=== PATIENT | male | born 1970 | race Caucasian/White ===

== ENCOUNTER 2017-02-06 20:07 | Emergency (ER) | payer MEDICAID ==
[~2017-02-06] VITALS: Ht 167.6 cm; Wt 67.6 kg
[2017-02-06 20:07] VITALS: BP 151/77
--- NOTE | 2017-02-06 20:10 | NUR ---
PT BIB [facility] FOR HEROIN OVERDOSE, PER RESCUE. PT RECEIVED 2MG IM NARCAN CASE PACKER AND SEALER FOR UNRESPONSIVENESS; PT IS NOW AWAKE AND ALERT, YELLING AT STAFF AND THREATENING TO SPIT ON STAFF. NOTED WITH A COUGH AND TO BE DRY HEAVING. NO VOMITING NOTED. RESP EVEN UNLABORED. SKIN WARM NONDIAPHORETIC. IN ER BED 12. PLACED ON RESTRAINTS FOR SAFETY.
[2017-02-06] MEDS ORDERED: ONDANSETRON 4 MG TAB.RAPDIS ONE (20:14)
--- NOTE | 2017-02-06 20:14 | NUR ---
PT VOMITED MULTIPLE TIMES IN RAPID SUCCESSION; MD NOTIFIED. NO HEMATEMESIS NOTED.
[2017-02-06] MEDS ORDERED: ONDANSETRON 4 MG TAB.RAPDIS SL ONE (20:30)
--- NOTE | 2017-02-06 21:28 | NUR ---
PT AWAKE AND ALERT, STATED REPEATEDLY "I WANT TO LEAVE" AND WAS ESCORTED OUT BY SECURITY. AMBULATORY WITH STEADY GAIT. AWARE. Addendum: 02/06/17 at 2130 by HFOX NO SI/HI. PT REFUSED TO WAIT FOR DISCHARGE BY .
== END 2017-02-06 21:29 | disposition left against medical advice (07) ==
LOC: ER 20:09
DX: F11.10 Opioid abuse, uncomplicated (principal); I10 Essential (primary) hypertension; F32.9 Major depressive disorder, single episode, unspecified
CPT/HCPCS: 99283; A4606; Q0162; Z7610

== ENCOUNTER 2017-02-18 10:17 | Emergency (ER) | payer OTHER, MEDICAID ==
[~2017-02-18] VITALS: Ht 175.3 cm; Wt 80.7 kg
[2017-02-18 10:22] VITALS: BP 142/85
== END 2017-02-18 10:44 ==
LOC: ER 10:21
DX: S00.81XA Abrasion of other part of head, initial encounter (principal); I10 Essential (primary) hypertension; F32.9 Major depressive disorder, single episode, unspecified; F17.200 Nicotine dependence, unspecified, uncomplicated; W45.8XXA Other foreign body or object entering through skin, initial encounter; Y93.K3 Activity, grooming and shearing an animal; Y92.89 Other specified places as the place of occurrence of the external cause; Y99.8 Other external cause status
CPT/HCPCS: A4606; Z7610

== ENCOUNTER 2019-03-11 16:30 | Inpatient (IN) | payer MEDICAID, OTHER ==
[~2019-03-11] VITALS: Ht 175.3 cm; Wt 90.7 kg
--- NOTE | 2019-03-11 16:51 | NUR ---
PT BBISELF FOR LLE CELLULITIS, PT AAOX4, PT AMBULATORY, VSS, NAD NOTED, PT TO BED 13, PENDING MD MARIE
[2019-03-11] MEDS ORDERED: CLIN300C11 PO (17:22)
[2019-03-11] MEDS ORDERED: IBUP-1957 PO (17:22)
[2019-03-11] MEDS ORDERED: AMLO10TA7 PO (17:26)
[2019-03-11] MEDS ORDERED: HYDROMORPHONE 1 MG/1 ML DISP.SYRIN IM ONE (18:30)
[2019-03-11 18:42] LABS: CALCIUM, SERUM 7.6 mg/dL (8.5-10.1)
[2019-03-11 18:50] LABS: ALBUMIN 1.7 g/dL (3.4-5.0); BILIRUBIN,DIRECT 0.2 mg/dL (0.0-0.2); BILIRUBIN,TOTAL 0.5 mg/dL (0.2-1.0)
--- NOTE | 2019-03-11 18:50 | NUR ---
UNABLE TO START PIV. CALLED HOUSE SUP FOR MIDLINE NX
[2019-03-11 18:51] LABS: TOTAL PROTEIN, SERUM 6.2 g/dL (6.4-8.2)
--- NOTE | 2019-03-11 19:20 | NUR ---
PICCLINE/MIDLINE NURSE AT BEDSIDE.
[2019-03-11] MEDS ORDERED: HYDROMORPHONE 1 MG/1 ML DISP.SYRIN ONE (19:38)
--- NOTE | 2019-03-11 19:39 | NUR ---
REPORT GIVEN TO KATHI CHRISTIAN FOR DEBO
--- NOTE | 2019-03-11 19:45 | NUR ---
PER DR LECHUGA, GEORGIE TO GIVE DILAUDID 1MG IM TO IVP INSTEAD.
[2019-03-11 19:49] LABS: BASOPHILS % (AUTO) 0.4 % (0.0-2.0); EOSINOPHILS % (AUTO) 0.3 % (0.0-6.0); HEMATOCRIT 33 % (39-51); HEMOGLOBIN 10.4 g/dL (13.5-17.5); LYMPHOCYTES # (AUTO) 0.8 /CMM (0.8-4.8); LYMPHOCYTES % (AUTO) 7.2 % (20.0-44.0); MEAN CORPUSCULAR HGB CONC 31 g/dl (31.0-36.0); MEAN CORPUSCULAR VOLUME 73 fL (80-96); MONOCYTES # (AUTO) 1.2 /CMM (0.1-1.30); MONOCYTES % (AUTO) 10.6 % (2.0-12.0); NEUTROPHILS % (AUTO) 81.5 % (43.0-81.0); PLATELET COUNT (AUTO) 261 /CMM (150-450); RED BLOOD CELL COUNT(AUTO) 4.56 MIL/uL (4.5-6.0); WHITE BLOOD COUNT (AUTO) 11.1 K/uL (4.3-11.0)
[2019-03-11] MEDS ORDERED: VANCOMYCIN 1 GM in IV D5W 250 ML IV ONE (20:00)
[2019-03-11] MEDS ORDERED: PIPERACILLIN /TAZOBACTAM 3.375 G in IV D5W 50 ML IV ONE (20:00)
--- NOTE | 2019-03-11 20:22 | NUR ---
[facility] CALLED, AIRCRAFT SERVICER DOCTOR PAGED.
[2019-03-11] MEDS ORDERED: VANCOMYCIN 1 GM VIAL ONE (20:43)
[2019-03-11] MEDS ORDERED: PIPERACILLIN /TAZOBACTAM 3.375 G VIAL IV ONE (20:43)
--- NOTE | 2019-03-11 21:05 | NUR ---
REPORT GIVEN TO RATNA CHRISTIAN FOR DEBO.
[2019-03-11] MEDS ORDERED: ACETAMINOPHEN 325 MG TABLET PO PRN (21:30)
[2019-03-11] MEDS ORDERED: ONDANSETRON HCL/PF 4 MG/2 ML VIAL IVP PRN (21:30)
[2019-03-11] MEDS ORDERED: ZOLPIDEM TARTRATE 5 MG TABLET PO PRN (21:30)
[2019-03-11] MEDS ORDERED: BUMETANIDE INJ 6 MG in IV NS 0.9% 36 ML IV ONE (21:30)
[2019-03-11] MEDS ORDERED: Z GUARD REMEDY 2 OZ OINT TP PRN (21:30)
--- NOTE | 2019-03-11 21:30 | NUR ---
EXERCISER HORSETERMINAL SUPERVISOR NOTE: PT ADMITTED FROM ER VIA [facility] WITH ADMITTING DIAGNOSIS OF CELLULITIS. PT IS ALERT AND ORIENTED X4. ABLE TO MAKE NEEDS KNOWN. NO APPARENT DISTRESS NOTED. DENIES PAIN AND DISCOMFORT AT THIS TIME. ON ROOM AIR, SATURATING WELL. BREATHING EVEN AND UNLABORED WITH NORMAL RESPIRATIONS. ON TELE MONITOR SINUS RHYHTM HR 96BPM. PT HAS A LEFT UPPER ARM MIDLINE, FLUSHING WELL. PT IS AMBULATORY. PERTINENT ASSESSMENTS DONE. LEFT LOWER EXT CELLULITIS NOTED AND A DRY WOUND ON RIGHT INDEX FINGER WAS ALSO NOTED, PICTURES TAKEN AND PLACED ON CHART. CALL LIGHT PLACED WITHIN REACH. KEPT CLEAN, DRY AND COMFORTABLE. SAFETY AND FALL PRECAUTIONS OBSERVED AND MAINTAINED. WILL CONTINUE TO MONITOR PT.
[2019-03-11] MEDS ORDERED: BUMETANIDE INJ 0.25 MG/ML VIAL ONE ×2 (21:53→21:55)
[2019-03-11 21:55] VITALS: BP 162/102
[2019-03-11] MEDS: ENOXAPARIN SODIUM 40 MG/0.4 ML DISP.SYRIN SQ SCH ×2 (22:00→22:25)
--- NOTE | 2019-03-11 22:00 | NUR ---
MEDICAL CODING AUDITOR NOTE: DR. HERNANDEZ NOTIFIED REGARDING PATIENT'S BP 162/102 AND HE ORDERED TO START BUMEX IV AND DIOVAN 160MG PO BID FIRST DOSE TO START NOW. ORDER CARRIED OUT AND DONE. WILL CONTINUE TO MONITOR PT.
[2019-03-11 22:03] VITALS: BP 162/100
[2019-03-11] MEDS: VALSARTAN 80 MG TABLET PO SCH (22:24)
--- NOTE | 2019-03-11 23:00 | NUR ---
HEMP FIBER TAKER OFF NOTE: LOVENOX 40MG GIVEN AT 2225.
[2019-03-12] VITALS (7 sets, daily range): BP systolic 124–169; BP diastolic 80–100
[2019-03-12] MEDS ORDERED: PIPERACILLIN /TAZOBACTAM 3.375 G in IV D5W 50 ML IV ONE (02:00)
[2019-03-12] MEDS ORDERED: PIPERACILLIN /TAZOBACTAM 3.375 G VIAL IV ONE (02:21)
--- NOTE | 2019-03-12 06:29 | NUR ---
CORPORATE COMPLIANCE OFFICER NOTE: NO CHANGES NOTED THROUGHOUT THE SHIFT. NO APPARENT DISTRESS NOTED. DENIES PAIN AND DISCOMFORT AT THIS TIME. NO SOB NOTED. SINUS TACHY HR 104BPM ON TELE MONITOR. PT REFUSED BLOOD DRAW AT THIS TIME, VERBALIZED "I DON'T WANT TO BE BOTHERED AT THIS TIME". CHARGE NURSE MADE AWARE. LEFT UPPER ARM MIDLINE INTACT AND PATENT, FLUSHING WELL. CALL LIGHT PLACED WITHIN REACH. KEPT CLEAN, DRY AND COMFORTABLE. SAFETY AND FALL PRECAUTIONS OBSERVED AND MAINTAINED. WILL ENDORSE TO DAY SHIFT RN FOR CONTINUITY OF CARE.
[2019-03-12 07:45] LABS: BASOPHILS % (AUTO) 0.2 % (0.0-2.0); EOSINOPHILS % (AUTO) 0.3 % (0.0-6.0); HEMATOCRIT 32 % (39-51); HEMOGLOBIN 10.3 g/dL (13.5-17.5); LYMPHOCYTES # (AUTO) 1.2 /CMM (0.8-4.8); LYMPHOCYTES % (AUTO) 10.3 % (20.0-44.0); MEAN CORPUSCULAR HGB CONC 32 g/dl (31.0-36.0); MEAN CORPUSCULAR VOLUME 74 fL (80-96); MONOCYTES # (AUTO) 1.2 /CMM (0.1-1.30); MONOCYTES % (AUTO) 10.6 % (2.0-12.0); NEUTROPHILS % (AUTO) 78.6 % (43.0-81.0); PLATELET COUNT (AUTO) 321 /CMM (150-450); RED BLOOD CELL COUNT(AUTO) 4.37 MIL/uL (4.5-6.0); WHITE BLOOD COUNT (AUTO) 11.5 K/uL (4.3-11.0)
[2019-03-12 07:55] LABS: ALBUMIN 1.7 g/dL (3.4-5.0); BILIRUBIN,TOTAL 0.6 mg/dL (0.2-1.0); CALCIUM, SERUM 7.9 mg/dL (8.5-10.1); CREATININE 1.1 mg/dL (0.6-1.3); MAGNESIUM 1.6 mg/dL (1.8-2.4); PHOSPHORUS 3.8 mg/dL (2.5-4.9); POTASSIUM 3.8 mmol/L (3.5-5.1)
[2019-03-12] MEDS ORDERED: FEE PK DOSING 1 MIN EA MC ONE (07:57)
--- NOTE | 2019-03-12 08:00 | NUR ---
rn note Received pt from arc furnace operator, around 0735 he was in the bathroom, smoking smell noted and pt admitted smoking in the bathroom. pt reminded and encouraged not to smoke anywhere in the unit and safety hazard explained to him, he promised not to do it again. pt refused to give his matches and cigarettes to the nurse to safe. Pt refused to have nicotine patch, he is a heavy smoker, 1 pack /day. Pt removed his toy painter stating that is uncomfortable. Later he reported that he took Norvasc 10mg, Cleocin 300 mg, and a Ibuprofen 800 mg. from his bag. Pt instructed not to take any home meds while in the hospital risking overdose. Pt verbalized understanding. pt refused to give his medicines to store at the pharmacy.
[2019-03-12 08:06] LABS: THYROID STIMULATING HORMONE 6.696 uIU/mL (0.358-3.74)
[2019-03-12] MEDS: AMLODIPINE BESYLATE 10 MG TABLET PO SCH (08:14)
[2019-03-12] MEDS: VALSARTAN 80 MG TABLET PO SCH ×2 (08:23→16:45)
[2019-03-12] MEDS: HYDROCODONE/APAP 10/325MG 1 EA TABLET PO PRN ×2 (08:24→14:52)
--- NOTE | 2019-03-12 08:46 | NUR ---
WOUND CARE CONSULT: PT PRESENTS AMBULATORY AND CONTINENT WITH RT INDEX FINGER DRY WOUND, RT BUTTOCK NECROTIC WOUND AND LEFT LOWER LEG REDNESS, EDEMA AND SOME DRAINAGE, PRESENT ON ADMISSION. RECOMMEND SURGICAL AND DPM CONSULTS. DR LITO CRAVEN AND DR CHILDRESS NOTIFIED OF CONSULT REQUESTS. RECOMMENDATIONS MADE FOR WOUND CARE AND SKIN PROTECTION. DISCUSSED WITH NURSING STAFF. DEFER TO ROASTER HELPER FOR LOWER LEG. WILL SEE PRN. ABREU IN AGREEMENT WITH PLAN OF CARE. Addendum: 03/12/19 at 0848 by SARI MONCADA WNDNU Amended: Links added.
[2019-03-12] MEDS ORDERED: HYDROGEL DRESSING 90 GM TUBE TP PRN (09:00)
--- NOTE | 2019-03-12 09:00 | NUR ---
RN NOTE PT WANTS TO SMOKE, DIRECTOR SPECIALTY LIZBETH PEREA NOTIFIED, PT REFUSED NICOTINE PATCH. OKAY TO SMOKE UNDER SUPERVISION. PT SIGNED A WAIVER TO SMOKE.
[2019-03-12] MEDS: VANCOMYCIN 1 GM in IV D5W 250 ML IV SCH ×2 (09:30→19:02)
[2019-03-12] MEDS: HYDROGEL DRESSING 90 GM TUBE TP SCH (11:18)
[2019-03-12] MEDS: PIPERACILLIN /TAZOBACTAM 3.375 G in IV D5W 50 ML IV SCH ×2 (11:18→17:52)
[2019-03-12] MEDS: Magnesium 1GM/D5W 100ML PREMIX 100 ML IV SCH ×2 (12:43→14:05)
--- NOTE | 2019-03-12 13:37 | NUR ---
Social service consult requested for homelessness and drug use. Pt. is a 48 year old male who was admitted to [facility] for sepsis and cellulitis. SW met with pt. at bedside. Pt. was laying in his bed and was not fully engaged during consultation. Pt. appeared tired and is oriented x 3. Pt. states that he lives in a tent encampment in [place], [place]. SW inquired with pt. regarding his drug use, and pt. states that he uses heroin a lot. Pt. also states he uses alcohol and cigarettes, but denied marijuana use. SW inquired with Pt. about his homelessness, and Pt. states that has been living in the homeless encampment for a while. SW offered pt. homeless jail referrals and substance treatment program referrals, but pt. states he already has plans to go to [facility] for services. Pt. denied a history of psychiatric diagnosis, and pt. denied suicidal ideation at this time. automotive worker provide the following additional alcohol treatment program and jail referrals: [facility], [address] [facility] [address], [facility], [facility]. [address], [facility] [address], and [facility] [address] [facility]. [place] [phone]. in case pt. is in need of more treatment options in the future. Pt. will require a TAP card upon discharge to go to [facility]. Homeless Waiver has been signed by pt. and placed in his chart. No other services needed at this time. SW is available if needed.
[2019-03-12] MEDS ORDERED: SOD FERRIC GLUC 125 MG in IV NS 0.9% 100 ML IV SCH (16:00)
--- NOTE | 2019-03-12 19:35 | NUR ---
RN NOTES, RECEIVED PATIENT FROM PRIOR NURSE, PATIENT IN BED SLEEPING AT THIS TIME, BREATHING EVEN AND UNLABORED NO S/S OF SOB/ACUTE DISTRESS NOTED AT THIS TIME, AMBULATORY, SMOKER OK TO GO OUT TO SMOKE WITH SUPERVISION PER PETE PEREA MIDLINE S/L IN PLACED, NO S/S OF INFILTRATION OR INFECTION NOTED AT SITE, ALL NEEDS PROVIDED, BED LOCKED AN IN LOWEST POSITION, CALL LIGHT W/I REACH, WILLCONTINUE TO MONITOR CLOSELY.
[2019-03-12] MEDS: ENOXAPARIN SODIUM 40 MG/0.4 ML DISP.SYRIN SQ SCH (21:49)
--- NOTE | 2019-03-12 23:04 | NUR ---
RN NOTES, ORDER FOR VANCOMYCIN TROUGH FOR ADMINISTRATION OF MEDICATION AT 0000, PATIENT REFUSED BLOOD DRAWN, TRIED TO GET BLOOD FROM MIDLINE, BUT NO BLOOD RETURN A T THIS TIME, ASKED PATIENT FOR BLOOD DRAWN FROM ANY ARM AND PATIENT REFUSED AND VERBALLY AGGRESSIVE STATED THAT HE DOESN'T WANT TO BE BOTHERED AND DOESN'T APPROVED ANY BLOOD DRAWN AT THIS TIME, EDUCATION PROVIDED, RISKS AND BENEFITS EXPLAINED X3, PATIENT STILL REFUSED, WILL CONTINUE TO MONITOR CLOSELY.
[2019-03-13] MEDS: PIPERACILLIN /TAZOBACTAM 3.375 G in IV D5W 50 ML IV SCH ×3 (00:01→11:40)
[2019-03-13] MEDS: HYDROCODONE/APAP 10/325MG 1 EA TABLET PO PRN ×3 (01:25→11:28)
--- NOTE | 2019-03-13 04:00 | NUR ---
RN NOTES, PATIENT REFUSED VITALS SIGNS AT THIS TIME, EXPLAINED RISKS AND BENEFITS X3, STILL REFUSED, WILL CONTINUE TO MONITOR CLOSELY.
--- NOTE | 2019-03-13 06:45 | NUR ---
RN NOTES, PATIENT IN BED SLEEPING AT THIS TIME, BREATHING EVEN AND UNLABORED NO S/S OF SOB/ACUTE DISTRESS NOTED AT THIS TIME, PETE MIDLINE S/L IN PLACED, NO S/S OF INFILTRATION OR INFECTION NOTED AT SITE, ALL NEEDS PROVIDED, BED LOCKED AN IN LOWEST POSITION, REFUSED VANCO THROUGH AT 0000, AND NO VANCOMYCIN ADMINISTERED, ATTEMPT TO DRAW BLOOD FOR LABS IN AM AND VANCO THROUGH, AND PATIENT REFUSED, EXPLAINED RISKS AND BENEFITS X3, STILL REFUSED, WILL ENDORSE CONTINUITY OF CARE TO ONCOMING NURSE.
--- NOTE | 2019-03-13 07:38 | NUR ---
MS/RN NOTES RECEIVED PATIENT IN BED ALOC X4 REFUSING VITALS AND DOES NOT WANT TO BE DISTURBED. NONCOMPLIANT TO INITIAL ASSESSMENT. PATIENT IS ON ROOM AIR WITH A PETE MIDLINE, REFUSED FLUSH AND CHECK. EXPLAINED ALL RISKS AND BENEFITS TO REFUSING TREATMENT, PATIENT IS STILL REFUSING. BED LOCKED IN LOWEST POSITION, CALL LIGHT W/ IN REACH, WILL CONTINUE TO MONITOR.
[2019-03-13 08:00] VITALS: BP 153/102
[2019-03-13 08:03] VITALS: BP 153/102
[2019-03-13] MEDS: AMLODIPINE BESYLATE 10 MG TABLET PO SCH (08:03)
[2019-03-13] MEDS: VALSARTAN 80 MG TABLET PO SCH (08:03)
[2019-03-13] MEDS: HYDROGEL DRESSING 90 GM TUBE TP SCH (08:08)
--- NOTE | 2019-03-13 08:12 | NUR ---
MS RN notes Patient still refusing to draw blood including Vanco level and explained benefits and importance still refusing. Will follow up.
--- NOTE | 2019-03-13 08:59 | NUR ---
ms rn note spoke with pharmacist Helga notified that patient strongly refusing to draw labs and vanco level , salted its ok to Infuse vancomycin without level ,will f]\u Addendum: 03/13/19 at 0903 by AMALIA SOTO RN correction in spelling stated its ok to infuse vancomycin
[2019-03-13] MEDS: VANCOMYCIN 1 GM in IV D5W 250 ML IV SCH ×3 (09:04)
[2019-03-13] MEDS ORDERED: CELLULOSE,OXIDIZED 1 EACH EACH MC ONE (11:00)
[2019-03-13] MEDS ORDERED: CELLULOSE,OXIDIZED 1 EA PACK MC ONE (11:00)
[2019-03-13] MEDS ORDERED: SILVER NITRATE APPLICATOR 1 EA BOX TP ONE (11:00)
--- NOTE | 2019-03-13 11:05 | NUR ---
MS RN NOTE PER DR CRAVEN CONSENT FOR INCISIONAL DEBRIDEMENT SACRAL AND LT HIP DONE , STILL REFINING MORNING LAB TO KEILY , WILL CONT TO MONITOR SIGNED CONSENT FOR SMOKING , TAKEN TO SMOKE WITH STUFF
--- NOTE | 2019-03-13 11:32 | NUR ---
MS/RN NOTE PATIENT IS STILL COMPLAINING OF PAIN 10/10 GENERALIZED NARCO WAS GIVEN ORDERED. BP WAS 150/78 O2 SATURATION 98%, RR 18. WILL CONTINUE TO MONITOR.
--- NOTE | 2019-03-13 11:53 | NUR ---
MS RN NOTE STILL REFUSING TO DRAW LAB, OFFERED X2 AND EMPLANED OF IMPORTANCE, STILL REFUSING WILL F\U
[2019-03-13] MEDS ORDERED: VALS80TA2 PO (11:58)
[2019-03-13] MEDS ORDERED: SULF1TAB48 PO (11:58)
[2019-03-13] MEDS ORDERED: LIDOCAINE 1%-EPI 1:100,000 20 ML VIAL TP ONE (12:00)
--- NOTE | 2019-03-13 12:00 | NUR ---
RN/MS NOTES SIGNED FORM FOR SMOKING CONSENT WENT TO SMOKE, ACCOMPANIED BY STAFF.
--- NOTE | 2019-03-13 12:48 | NUR ---
MS/RN NOTES STEFANIA JARAMILLO RN, FITNESS CONSULTANT AT BEDSIDE BEGAN TO EXPLAIN DISCHARGE AND PRESCRIPTIONS, BUT PATIENT VERY EAGER TO LEAVE THE HOSPITAL DID NOT WAIT FOR INSTRUCTIONS OR DISCHARGE PAPERWORK OR PRESCRIPTIONS. REMOVED MIDLINE BY HIMSELF, REFUSED FOR US TO PLACE DRESSING, REFUSED TO WAIT FOR DISCHARGE PAPERWORK, DID NOT SIGN BELONG LIST. LEFT THE HOSPITAL IN A STABLE CONDITION ON HIS OWN, SECURITY CALLED TO MAKE SURE PATIENT LEAVES SAFELY. STEFANIA JARAMILLO AWARE, MORTGAGE ORIGINATOR NOTIFIED ABOUT PATIENT BEHAVIOR, ACCORDING TO MORTGAGE ORIGINATOR PATIENT SIGNED HOMELESS WAIVER, OFFERED [facility], SEE MORTGAGE ORIGINATOR NOTES.
[2019-03-13] MEDS ORDERED: SOD FERRIC GLUC 125 MG in IV NS 0.9% 100 ML IV SCH (14:00)
[2019-03-13] MEDS ORDERED: LACTOBACILLUS RHAMNOSUS GG 1 EACH CAP.SPRINK PO SCH (17:00)
== END 2019-03-13 12:41 | disposition home or self-care (01) | DRG 197 ==
LOC: ER 16:38 → TELE-TD 18:41 → TELE1 21:42 → MEDSG1 03-12 08:04
PROVIDERS: ADMIT Nurse Practitioner Acute Care; ATTEND Hospitalist
PROC: 05H633Z Insertion of Infusion Device into Left Subclavian Vein, Percutaneous Approach (ICD-10-PCS; 2019-03-11)
PROC: 0JBP0ZZ Excision of Left Lower Leg Subcutaneous Tissue and Fascia, Open Approach (ICD-10-PCS; principal; 2019-03-12)
DX: I87.332 Chronic venous hypertension (idiopathic) with ulcer and inflammation of left lower extremity (principal); I50.33 Acute on chronic diastolic (congestive) heart failure; E44.0 Moderate protein-calorie malnutrition; L03.116 Cellulitis of left lower limb; I27.20 Pulmonary hypertension, unspecified; E83.42 Hypomagnesemia; E88.09 Other disorders of plasma-protein metabolism, not elsewhere classified; D50.9 Iron deficiency anemia, unspecified; F17.200 Nicotine dependence, unspecified, uncomplicated; F19.10 Other psychoactive substance abuse, uncomplicated; E66.9 Obesity, unspecified; Z59.0 Homelessness; I11.0 Hypertensive heart disease with heart failure; I34.0 Nonrheumatic mitral (valve) insufficiency; S61.200A Unspecified open wound of right index finger without damage to nail, initial encounter; X58.XXXA Exposure to other specified factors, initial encounter; Y93.9 Activity, unspecified; Y92.009 Unspecified place in unspecified non-institutional (private) residence as the place of occurrence of the external cause; Z68.29 Body mass index [BMI] 29.0-29.9, adult; F32.9 Major depressive disorder, single episode, unspecified; D72.829 Elevated white blood cell count, unspecified; R73.9 Hyperglycemia, unspecified; S31.819A Unspecified open wound of right buttock, initial encounter
CPT/HCPCS: 36415; 36569; 71045-TC; 73590-TC; 80048-TC; 80053-TC; 80061-TC; 80076-TC; 83540-TC; 83605-TC; 83735-TC; 83880; 84100-TC; 84443-TC; 84484-TC; 85025-TC; 85730-TC; 87040-TC; 87081-TC; 93307-TC; 93971-TC; A4216; A6248; G0378; J1170; J1650; J2543; J2916; J3370; J3475; J3490; J7030; J7060

== ENCOUNTER 2019-05-30 13:32 | Emergency (ER) | payer MEDICAID ==
[~2019-05-30] VITALS: Ht 175.3 cm; Wt 77.1 kg
[~2019-05-30 13:32] MED LIST: AMLO10TA7 PO; IBUP-1957 PO; SULF1TAB48 PO; VALS80TA2 PO
--- NOTE | 2019-05-30 13:45 | NUR ---
PT AMBULATORY TO ER BED 14 C/O R SHOULDER AREA PAIN AND SWELLING S/P SHOOTING HEROIN. PT ALSO C/O HIGH BLOOD PRESSURE AND IS REQUESTING MED REFILL. AWAITING MD MARIE.
--- NOTE | 2019-05-30 15:14 | NUR ---
LOLA CASTRO AT BEDSIDE FOR EVAL.
[2019-05-30] MEDS ORDERED: AMLODIPINE BESYLATE 5 MG TABLET ONE (15:25)
[2019-05-30] MEDS ORDERED: HYDROMORPHONE 1 MG/1 ML DISP.SYRIN ONE (15:25)
[2019-05-30] MEDS ORDERED: LIDOCAINE 1%-EPI 1:100,000 20 ML VIAL TP ONE (15:30)
[2019-05-30] MEDS ORDERED: HYDROMORPHONE INJ 0.5 MG/0.5 ML SYRINGE IM ONE (15:30)
[2019-05-30] MEDS ORDERED: IPRATROPIUM NEB FS 0.5 MG/2.5 ML AMPUL.NEB NEB ONE (15:30)
[2019-05-30] MEDS ORDERED: AMLODIPINE BESYLATE 5 MG TABLET PO ONE (15:30)
[2019-05-30] MEDS ORDERED: ALBUTEROL FS 2.5 MG/0.5 ML VIAL.NEB NEB ONE (15:30)
[2019-05-30] MEDS ORDERED: IPRATROPIUM NEB FS 0.5 MG/2.5 ML AMPUL.NEB ONE (15:38)
[2019-05-30] MEDS ORDERED: ALBUTEROL FS 2.5 MG/3 ML VIAL.NEB ONE (15:38)
[2019-05-30 15:58] VITALS: BP 178/118
[2019-05-30] MEDS ORDERED: CLINDAMYCIN HCL 150 MG CAPSULE PO ONE ×2 (16:00→16:56)
[2019-05-30] MEDS ORDERED: LIDOCAINE 1%-EPI 1:100,000 20 ML VIAL ONE (16:25)
--- NOTE | 2019-05-30 16:25 | NUR ---
LOLA CASTRO AT BEDSIDE FOR INCISION AND DRAINAGE.
== END 2019-05-30 17:06 | disposition home or self-care (01) ==
LOC: ER 13:32
DX: L02.413 Cutaneous abscess of right upper limb (principal); I16.0 Hypertensive urgency; J98.01 Acute bronchospasm; I11.0 Hypertensive heart disease with heart failure; I50.9 Heart failure, unspecified; F32.9 Major depressive disorder, single episode, unspecified; F19.90 Other psychoactive substance use, unspecified, uncomplicated; F10.10 Alcohol abuse, uncomplicated; F17.200 Nicotine dependence, unspecified, uncomplicated; Y90.9 Presence of alcohol in blood, level not specified; Z91.013 Allergy to seafood; Z59.0 Homelessness
CPT/HCPCS: 10060; 94640 ×2; 96372; 99284; A6403; A6407; J1170; J3490; J7030

== ENCOUNTER 2019-11-30 11:21 | Emergency (ER) | payer MEDICAID ==
[~2019-11-30] VITALS: Ht 175.3 cm; Wt 77.1 kg
[2019-11-30] MEDS ORDERED: AMLODIPINE BESYLATE 5 MG TABLET ONE (11:55)
[2019-11-30 11:59] VITALS: BP 179/124
--- NOTE | 2019-11-30 11:59 | NUR ---
PT REFUSED ANY IV OR BLOOD DRAW. DR. VIDALES AWARE
[2019-11-30] MEDS ORDERED: AMLODIPINE BESYLATE 5 MG TABLET PO ONE (12:00)
--- NOTE | 2019-11-30 12:17 | NUR ---
Patient does not wish to proceed with medical care recommended by Dr. Westbrook. Patient given information related to possible complications, up to and including , which could occur as a result of leaving the hospital at this time. Patient verbalizes understanding of risks involved due to leaving against medical advice. Patient has signed AMA form.
== END 2019-11-30 12:19 | disposition left against medical advice (07) ==
LOC: ER 11:21
DX: I11.0 Hypertensive heart disease with heart failure (principal); I50.9 Heart failure, unspecified; R07.89 Other chest pain; F32.9 Major depressive disorder, single episode, unspecified; D64.9 Anemia, unspecified; F17.200 Nicotine dependence, unspecified, uncomplicated; Z91.013 Allergy to seafood; Z59.0 Homelessness; Z79.899 Other long term (current) drug therapy

== ENCOUNTER 2020-03-29 10:00 | Emergency (ER) | payer MEDICAID, OTHER ==
[~2020-03-29] VITALS: Ht 175.3 cm; Wt 77.1 kg
--- NOTE | 2020-03-29 10:00 | NUR ---
bibra60 and [employer], incustody, c/o abd pain x 1 day, -N/V,-diarrhea, to ER bed 13, hooked to monitor, changed to hosp gown, warm blabket provided, patient aao X 3, breathing even and unlabored, Dr Juares at bedside
--- NOTE | 2020-03-29 11:04 | NUR ---
Patient discharged in custody of Officer Charanjit #[id number] of [facility] in stable condition. Written and verbal after care instructions given. Patient and [employer] verbalizes understanding of instruction.
[2020-03-29 11:05] VITALS: BP 149/86
--- NOTE | 2020-03-29 11:52 | NUR ---
patient left in custody accompanied by [employer] in no distress.
== END 2020-03-29 11:52 ==
LOC: ER 10:00
DX: K40.90 Unilateral inguinal hernia, without obstruction or gangrene, not specified as recurrent (principal); I11.0 Hypertensive heart disease with heart failure; I50.9 Heart failure, unspecified; F32.9 Major depressive disorder, single episode, unspecified; F17.200 Nicotine dependence, unspecified, uncomplicated; D64.9 Anemia, unspecified; Z91.013 Allergy to seafood; Z59.0 Homelessness; Z79.899 Other long term (current) drug therapy

== ENCOUNTER 2020-07-10 19:35 | Emergency (ER) | payer MEDICAID, OTHER ==
[~2020-07-10] VITALS: Ht 175.3 cm; Wt 77.1 kg
[2020-07-10 19:35] VITALS: BP 140/81
--- NOTE | 2020-07-10 20:20 | NUR ---
Patient discharged to home in stable condition. Written and verbal after care instructions given. Patient verbalizes understanding of instruction.
== END 2020-07-10 19:49 | disposition home or self-care (01) ==
LOC: ER 19:46
DX: I11.0 Hypertensive heart disease with heart failure (principal); I50.9 Heart failure, unspecified; R07.89 Other chest pain; D53.9 Nutritional anemia, unspecified; Z76.0 Encounter for issue of repeat prescription; Z91.013 Allergy to seafood; Z59.0 Homelessness; Z79.899 Other long term (current) drug therapy

== ENCOUNTER 2020-09-05 10:28 | Emergency (ER) | payer MEDICAID ==
[~2020-09-05] VITALS: Ht 175.3 cm; Wt 80.7 kg
--- NOTE | 2020-09-05 10:40 | NUR ---
BIBSELF WITH C/O ELEVATED BP 180/140 PER PT. TOOK LISINOPRIL & LASIX THIS AM. PT STILL C/O DIZZINESS. NO N/V. NO CHEST PAIN. AWAITING FOR MD MARIE
--- NOTE | 2020-09-05 10:42 | NUR ---
SEEN AND EVAL BY MD WITH NO NEW ORDER
[2020-09-05] MEDS ORDERED: AMLODIPINE BESYLATE 5 MG TABLET ONE (11:08)
[2020-09-05] MEDS ORDERED: AMLODIPINE BESYLATE 5 MG TABLET PO ONE (11:30)
[2020-09-05] MEDS ORDERED: FURO-144 PO (11:32)
[2020-09-05] MEDS ORDERED: LISI10TA5 PO (11:32)
[2020-09-05 12:37] VITALS: BP 140/100
== END 2020-09-05 12:38 | disposition home or self-care (01) ==
LOC: ER 10:33
DX: I11.0 Hypertensive heart disease with heart failure (principal); I50.9 Heart failure, unspecified; Z91.013 Allergy to seafood; Z59.0 Homelessness; Z79.899 Other long term (current) drug therapy

== ENCOUNTER 2020-09-19 10:50 | Emergency (ER) | payer MEDICAID ==
[~2020-09-19] VITALS: Ht 175.3 cm; Wt 77.1 kg
[~2020-09-19 10:50] MED LIST changes: -AMLO10TA7 PO; +FURO-144 PO; -IBUP-1957 PO; +LISI10TA5 PO; -SULF1TAB48 PO; -VALS80TA2 PO
[2020-09-19 10:54] VITALS: BP 134/81
== END 2020-09-19 11:28 | disposition home or self-care (01) ==
LOC: ER 10:57
DX: I11.0 Hypertensive heart disease with heart failure (principal); I50.9 Heart failure, unspecified; Z76.0 Encounter for issue of repeat prescription; F32.9 Major depressive disorder, single episode, unspecified; D64.9 Anemia, unspecified; F17.200 Nicotine dependence, unspecified, uncomplicated; Z91.013 Allergy to seafood; Z59.0 Homelessness; Z79.899 Other long term (current) drug therapy

== ENCOUNTER 2020-10-22 13:06 | Emergency (ER) | payer MEDICAID ==
[~2020-10-22] VITALS: Ht 175.3 cm; Wt 77.1 kg
[2020-10-22 13:32] VITALS: BP 146/92
== END 2020-10-22 14:23 | disposition home or self-care (01) ==
LOC: ER 13:10
DX: I11.0 Hypertensive heart disease with heart failure (principal); I50.9 Heart failure, unspecified; Z76.0 Encounter for issue of repeat prescription; F32.9 Major depressive disorder, single episode, unspecified; D64.9 Anemia, unspecified; F17.200 Nicotine dependence, unspecified, uncomplicated; Z91.013 Allergy to seafood; Z60.2 Problems related to living alone; Z79.899 Other long term (current) drug therapy

== ENCOUNTER 2020-11-24 23:14 | Emergency (ER) | payer MEDICAID ==
[~2020-11-24] VITALS: Ht 175.3 cm; Wt 81.6 kg
[2020-11-24] MEDS ORDERED: AMLODIPINE BESYLATE 5 MG TABLET PO ONE (23:30)
[2020-11-24] MEDS ORDERED: LISINOPRIL (10MG) 10 MG TABLET PO SCH (23:30)
[2020-11-24] MEDS ORDERED: AMLODIPINE BESYLATE 5 MG TABLET ONE (23:31)
[2020-11-24 23:35] VITALS: BP 164/101
== END 2020-11-24 23:37 | disposition home or self-care (01) ==
LOC: ER 23:18
DX: I11.0 Hypertensive heart disease with heart failure (principal); I50.9 Heart failure, unspecified; Z76.0 Encounter for issue of repeat prescription; F32.9 Major depressive disorder, single episode, unspecified; D64.9 Anemia, unspecified; F17.200 Nicotine dependence, unspecified, uncomplicated; Z91.013 Allergy to seafood; Z60.2 Problems related to living alone; Z79.899 Other long term (current) drug therapy

== ENCOUNTER 2020-12-29 12:50 | Emergency (ER) | payer MEDICAID ==
[~2020-12-29] VITALS: Ht 175.3 cm; Wt 77.1 kg
[~2020-12-29 12:50] MED LIST changes: +LISI10TA29 PO; -LISI10TA5 PO
[2020-12-29 12:56] VITALS: BP 167/96
[2020-12-29] MEDS ORDERED: AMLO10TA4 PO (13:12)
[2020-12-29] MEDS ORDERED: LISI10TA29 PO (13:12)
== END 2020-12-29 13:27 | disposition home or self-care (01) ==
LOC: ER 12:53
DX: I11.0 Hypertensive heart disease with heart failure (principal); I50.9 Heart failure, unspecified; F10.10 Alcohol abuse, uncomplicated; F17.200 Nicotine dependence, unspecified, uncomplicated; F32.9 Major depressive disorder, single episode, unspecified; Y90.9 Presence of alcohol in blood, level not specified; Z76.0 Encounter for issue of repeat prescription; Z91.013 Allergy to seafood; Z60.2 Problems related to living alone; Z79.899 Other long term (current) drug therapy

== ENCOUNTER 2021-02-09 09:32 | Emergency (ER) | payer MEDICAID ==
[~2021-02-09] VITALS: Ht 170.2 cm; Wt 81.6 kg
[~2021-02-09 09:32] MED LIST changes: +AMLO10TA4 PO
[2021-02-09] MEDS ORDERED: AMLO-213 PO (09:42)
[2021-02-09] MEDS ORDERED: LISI10TA29 PO (09:42)
[2021-02-09] MEDS ORDERED: AMLODIPINE BESYLATE 10 MG TABLET ONE (09:50)
[2021-02-09 09:57] VITALS: BP 168/102
--- NOTE | 2021-02-09 09:59 | NUR ---
Patient discharged to home in stable condition. Written and verbal after care instructions given. Patient verbalizes understanding of instruction.
[2021-02-09] MEDS ORDERED: LISINOPRIL (10MG) 10 MG TABLET PO SCH (10:00)
[2021-02-09] MEDS ORDERED: AMLODIPINE BESYLATE 5 MG TABLET PO ONE (10:00)
== END 2021-02-09 09:59 | disposition home or self-care (01) ==
LOC: ER 09:37
DX: I11.0 Hypertensive heart disease with heart failure (principal); I50.9 Heart failure, unspecified; Z76.0 Encounter for issue of repeat prescription; F32.9 Major depressive disorder, single episode, unspecified; D64.9 Anemia, unspecified; F17.200 Nicotine dependence, unspecified, uncomplicated; Z91.013 Allergy to seafood; Z60.2 Problems related to living alone; Z79.899 Other long term (current) drug therapy

== ENCOUNTER 2021-03-17 10:21 | Emergency (ER) | payer MEDICAID ==
[~2021-03-17] VITALS: Ht 175.3 cm; Wt 77.1 kg
[~2021-03-17 10:21] MED LIST changes: +AMLO-213 PO
[2021-03-17 10:32] VITALS: BP 164/111
--- NOTE | 2021-03-17 10:43 | NUR ---
Patient discharged to home in stable condition. Written and verbal after care instructions given. Patient verbalizes understanding of instruction.
== END 2021-03-17 10:43 | disposition home or self-care (01) ==
LOC: ER 10:25
DX: I11.0 Hypertensive heart disease with heart failure (principal); I50.9 Heart failure, unspecified; F32.9 Major depressive disorder, single episode, unspecified; F10.10 Alcohol abuse, uncomplicated; F17.200 Nicotine dependence, unspecified, uncomplicated; Y90.9 Presence of alcohol in blood, level not specified; Z59.0 Homelessness; Z91.013 Allergy to seafood; Z60.2 Problems related to living alone; Z79.899 Other long term (current) drug therapy; Z76.0 Encounter for issue of repeat prescription

== ENCOUNTER 2021-08-07 17:40 | Emergency (ER) | payer MEDICAID ==
[~2021-08-07] VITALS: Ht 175.3 cm; Wt 84.4 kg
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
--- NOTE | 2021-08-07 19:03 | NUR ---
taken to ct
[2021-08-07] MEDS ORDERED: CYCL10TA9 PO (20:48)
[2021-08-07] MEDS ORDERED: IBUP-1955 PO (20:48)
--- NOTE | 2021-08-07 20:59 | NUR ---
Patient discharged to home in stable condition. Rx and Written and verbal after care instructions given. Patient verbalizes understanding of instruction.
[2021-08-07 21:45] VITALS: BP 134/79
== END 2021-08-07 21:00 | disposition home or self-care (01) ==
LOC: ER 18:35
DX: S93.492A Sprain of other ligament of left ankle, initial encounter (principal); S93.491A Sprain of other ligament of right ankle, initial encounter; S90.32XA Contusion of left foot, initial encounter; S90.31XA Contusion of right foot, initial encounter; S49.81XA Other specified injuries of right shoulder and upper arm, initial encounter; S09.8XXA Other specified injuries of head, initial encounter; R51.9 Headache, unspecified; F32.9 Major depressive disorder, single episode, unspecified; I11.0 Hypertensive heart disease with heart failure; I50.9 Heart failure, unspecified; F10.10 Alcohol abuse, uncomplicated; F17.200 Nicotine dependence, unspecified, uncomplicated; Y90.9 Presence of alcohol in blood, level not specified; Z60.2 Problems related to living alone; Z79.899 Other long term (current) drug therapy; Z91.013 Allergy to seafood; V49.49XA Driver injured in collision with other motor vehicles in traffic accident, initial encounter; Y93.89 Activity, other specified; Y92.488 Other paved roadways as the place of occurrence of the external cause; Y99.8 Other external cause status
CPT/HCPCS: 70450-TC; 72125-TC; 73030-TC; 73610-TC

== ENCOUNTER 2021-12-05 16:28 | Emergency (ER) | payer MEDICAID ==
[~2021-12-05] VITALS: Ht 172.7 cm; Wt 77.1 kg
[~2021-12-05 16:28] MED LIST changes: +CYCL10TA9 PO; +IBUP-1955 PO
[2021-12-05] MEDS ORDERED: LISI10TA29 PO (17:07)
[2021-12-05] MEDS ORDERED: AMLO10TA4 PO (17:07)
[2021-12-05] MEDS ORDERED: CLONIDINE HCL 0.1 MG TABLET ONE (17:16)
[2021-12-05 17:18] VITALS: BP 189/101
[2021-12-05] MEDS: CLONIDINE HCL 0.1 MG TABLET PO ONE (17:18)
--- NOTE | 2021-12-05 17:18 | NUR ---
For discharge - Patient discharged to home in stable condition. Written and verbal after care instructions given. Patient verbalizes understanding of instruction.
== END 2021-12-05 17:19 | disposition home or self-care (01) ==
LOC: ER 16:29
DX: I11.0 Hypertensive heart disease with heart failure (principal); I50.9 Heart failure, unspecified; Z76.0 Encounter for issue of repeat prescription; F32.9 Major depressive disorder, single episode, unspecified; D64.9 Anemia, unspecified; Z91.013 Allergy to seafood; Z60.2 Problems related to living alone; Z79.891 Long term (current) use of opiate analgesic; Z79.811 Long term (current) use of aromatase inhibitors; Z79.1 Long term (current) use of non-steroidal anti-inflammatories (NSAID)

== ENCOUNTER 2022-01-10 12:07 | Emergency (ER) | payer MEDICAID ==
[~2022-01-10] VITALS: Ht 175.3 cm; Wt 93.0 kg
[2022-01-10] MEDS ORDERED: AMLO-213 PO (13:43)
[2022-01-10] MEDS ORDERED: LISI10TA29 PO (13:43)
[2022-01-10 13:48] VITALS: BP 162/101
--- NOTE | 2022-01-10 13:53 | NUR ---
PT MEDICALLY CLEARED. DISCHARGE HOME, PROVIDED W/ ACI AND HIGH B/P PRESCRIPTION.
[2022-01-10] MEDS ORDERED: hydrALAZINE HCL 10 MG TABLET PO ONE (14:00)
== END 2022-01-10 13:54 | disposition home or self-care (01) ==
LOC: ER 12:11
DX: Z76.0 Encounter for issue of repeat prescription (principal); I11.0 Hypertensive heart disease with heart failure; I50.9 Heart failure, unspecified; F32.9 Major depressive disorder, single episode, unspecified; F17.200 Nicotine dependence, unspecified, uncomplicated; Z86.2 Personal history of diseases of the blood and blood-forming organs and certain disorders involving the immune mechanism; Z91.013 Allergy to seafood; Z60.2 Problems related to living alone; Z79.1 Long term (current) use of non-steroidal anti-inflammatories (NSAID); Z79.811 Long term (current) use of aromatase inhibitors; Z79.891 Long term (current) use of opiate analgesic; Z79.01 Long term (current) use of anticoagulants; Z79.899 Other long term (current) drug therapy

== ENCOUNTER 2022-05-11 18:45 | Emergency (ER) | payer MEDICAID ==
[~2022-05-11] VITALS: Ht 175.3 cm; Wt 104.3 kg
[2022-05-11 21:13] VITALS: BP 149/88
== END 2022-05-11 21:22 | disposition home or self-care (01) ==
LOC: ER 18:52
DX: Z53.21 Procedure and treatment not carried out due to patient leaving prior to being seen by health care provider (principal); I11.0 Hypertensive heart disease with heart failure; I50.9 Heart failure, unspecified; F32.A Depression, unspecified; F17.200 Nicotine dependence, unspecified, uncomplicated; Z91.013 Allergy to seafood; Z60.2 Problems related to living alone; Z79.899 Other long term (current) drug therapy